=== PATIENT | female | born 1995 | race Two or more races ===

== ENCOUNTER 2017-11-14 11:32 | Emergency (ER) | payer OTHER ==
[~2017-11-14] VITALS: Ht 165.1 cm; Wt 99.8 kg
== END 2017-11-14 16:39 | disposition home or self-care (01) ==
LOC: ER 11:32
DX: S92.414A Nondisplaced fracture of proximal phalanx of right great toe, initial encounter for closed fracture (principal); W22.8XXA Striking against or struck by other objects, initial encounter; Y93.89 Activity, other specified; Y92.89 Other specified places as the place of occurrence of the external cause; Y99.8 Other external cause status

== ENCOUNTER 2017-11-17 15:00 | Outpatient (CLI) | payer OTHER | END 2017-11-17 15:06 | disposition home or self-care (01) | LOC: RAD 15:00 | DX: M25.571 Pain in right ankle and joints of right foot (principal) ==

== ENCOUNTER → 2018-12-18 | Outpatient (CLI) | payer OTHER | END | disposition home or self-care (01) | LOC: RAD 15:51 | DX: R05 Cough (principal) ==